=== PATIENT | female | born 1960 | race Caucasian/White ===

== ENCOUNTER 2016-07-24 02:40 | Inpatient (IN) | payer BC, MEDICARE ==
[~2016-07-24] VITALS: Ht 170.2 cm; Wt 116.4 kg
[2016-07-24] VITALS (39 sets, daily range): BP systolic 93–118; RESP 10–19; TEMP 96.6–98.4; Ht 170.2 cm; Wt 116.4 kg
[2016-07-24] MEDS ORDERED: MIDAZOLAM DRIP 100 ML IV ONE (03:47)
[2016-07-24] MEDS ORDERED: FENTANYL DRIP 50 ML IV ONE (03:48)
[2016-07-24] MEDS ORDERED: VANCOMYCIN 2,250 MG in SODIUM CHLORIDE 0.9% 500 ML IV ONE (04:25)
[2016-07-24] MEDS ORDERED: PIPERACIL/TAZO 4.5GM/100ML 100 ML IV ONE (04:25)
[2016-07-24] MEDS ORDERED: SALINE FLUSH 10 ML FLUSH PRN (04:35)
[2016-07-24] MEDS ORDERED: MIDAZOLAM IV SCH (04:40)
[2016-07-24] MEDS ORDERED: NEB-ALBUTEROL 2.5 MG/3 ML INH PRN (04:40)
[2016-07-24] MEDS ORDERED: SODIUM CHLORIDE 0.9% 1,000 ML ONE (04:43)
[2016-07-24] MEDS ORDERED: PHARMACY TO DOSE VANCOMYCIN IV SCH (04:45)
[2016-07-24] MEDS: SODIUM CHLORIDE 0.9% FLUSH BAG 500 ML IV SCH (05:44)
[2016-07-24] MEDS ORDERED: PIPERACIL/TAZO 4.5GM/100ML 100 ML IV SCH (06:00)
[2016-07-24] MEDS ORDERED: MAGNESIUM SULF 1 GM/100 ML 100 ML IV ONE (06:40)
[2016-07-24] MEDS: LEVOFLOXACIN 750 MG/150 ML 150 ML IV SCH (06:46)
[2016-07-24] MEDS: DUONEB INH SCH ×4 (06:59→22:41)
[2016-07-24] MEDS: LANSOPRAZOLE 30 MG SOLUTAB NG SCH (07:10)
[2016-07-24] MEDS: FENTANYL 500 MCG/50 ML BAG IV SCH ×2 (07:12→20:41)
[2016-07-24] MEDS: METHYLPRED SOD SUCC 40 MG VIAL IV SCH ×2 (07:54→16:36)
[2016-07-24] MEDS: ENOXAPARIN 40 MG/0.4 ML SYR SUBQ SCH (07:55)
[2016-07-24] MEDS: SALINE FLUSH 10 ML FLUSH SCH ×2 (07:55→20:00)
[2016-07-24] MEDS ORDERED: CHLORHEXIDINE 0.12% ORAL CARE FOR VENT PATIENTS 15 ML SWAB SCH (12:00)
[2016-07-24] MEDS: PIPERACIL/TAZO 4.5GM/100ML 100 ML IV SCH ×2 (12:09→16:37)
[2016-07-24] MEDS: CHLORHEXIDINE 0.12% ORAL CARE FOR VENT PATIENTS 15 ML SWAB SCH (12:10)
[2016-07-24] MEDS: VANCOMYCIN 2,000 MG in SODIUM CHLORIDE 0.9% 500 ML IV SCH (16:36)
[2016-07-25] VITALS (34 sets, daily range): BP systolic 96–132; RESP 8–16; TEMP 96.5–97.8
[2016-07-25] MEDS: PIPERACIL/TAZO 4.5GM/100ML 100 ML IV SCH ×4 (00:21→16:35)
[2016-07-25] MEDS: CHLORHEXIDINE 0.12% ORAL CARE FOR VENT PATIENTS 15 ML SWAB SCH ×2 (00:21→12:40)
[2016-07-25] MEDS: METHYLPRED SOD SUCC 40 MG VIAL IV SCH ×3 (00:21→16:34)
[2016-07-25] MEDS: DUONEB INH SCH ×6 (02:26→22:43)
[2016-07-25] MEDS: SODIUM CHLORIDE 0.9% FLUSH BAG 500 ML IV SCH (06:00)
[2016-07-25] MEDS: LANSOPRAZOLE 30 MG SOLUTAB NG SCH (06:25)
[2016-07-25] MEDS: VANCOMYCIN 2,000 MG in SODIUM CHLORIDE 0.9% 500 ML IV SCH (06:26)
[2016-07-25] MEDS: FENTANYL 500 MCG/50 ML BAG IV SCH ×2 (06:57→16:34)
[2016-07-25] MEDS: LEVOFLOXACIN 750 MG/150 ML 150 ML IV SCH (09:01)
[2016-07-25] MEDS: ENOXAPARIN 40 MG/0.4 ML SYR SUBQ SCH (09:02)
[2016-07-25] MEDS: SALINE FLUSH 10 ML FLUSH SCH ×2 (09:02→20:00)
[2016-07-26] VITALS (28 sets, daily range): BP systolic 100–156; RESP 9–22; TEMP 96.8–98.5
[2016-07-26] MEDS: PIPERACIL/TAZO 4.5GM/100ML 100 ML IV SCH ×4 (00:10→16:15)
[2016-07-26] MEDS: CHLORHEXIDINE 0.12% ORAL CARE FOR VENT PATIENTS 15 ML SWAB SCH ×2 (00:10→10:24)
[2016-07-26] MEDS: METHYLPRED SOD SUCC 40 MG VIAL IV SCH ×3 (00:10→16:15)
[2016-07-26] MEDS: SODIUM CHLORIDE 0.9% FLUSH BAG 500 ML IV SCH ×2 (05:08)
[2016-07-26] MEDS: LANSOPRAZOLE 30 MG SOLUTAB NG SCH (05:08)
[2016-07-26] MEDS: DUONEB INH SCH ×4 (07:49→23:38)
[2016-07-26] MEDS: ENOXAPARIN 40 MG/0.4 ML SYR SUBQ SCH (07:55)
[2016-07-26] MEDS: LEVOFLOXACIN 750 MG/150 ML 150 ML IV SCH (07:55)
[2016-07-26] MEDS: SALINE FLUSH 10 ML FLUSH SCH ×2 (08:00→20:00)
[2016-07-26] MEDS ORDERED: CORLANOR 7.5 MG PO SCH (09:00)
[2016-07-26] MEDS: MODAFINIL 100 MG TAB PO SCH (10:18)
[2016-07-26] MEDS: CORLANOR 7.5 MG PO SCH ×2 (10:19→21:00)
[2016-07-26] MEDS ORDERED: *PINK BRACELET XX ONE (10:20)
[2016-07-26] MEDS: GABAPENTIN 300 MG CAP PO SCH ×3 (10:20→21:00)
[2016-07-26] MEDS: PAROXETINE HCL 10 MG TAB PO SCH (10:20)
[2016-07-26] MEDS: Furosemide 40 MG/4 ML VIAL IV SCH (10:20)
[2016-07-26] MEDS ORDERED: NEB-ALBUTEROL 2.5 MG/3 ML INH PRN (10:40)
[2016-07-26] MEDS ORDERED: ONDANSETRON 4 MG VIAL IV PUSH PRN (10:55)
[2016-07-26] MEDS: *HOME MEDS IN MED CART XX SCH (20:00)
[2016-07-26] MEDS ORDERED: MISSING DOSE XX ONE (21:45)
[2016-07-27] VITALS (25 sets, daily range): BP systolic 102–143; RESP 11–22; TEMP 97.6–98.6
[2016-07-27] MEDS: PIPERACIL/TAZO 4.5GM/100ML 100 ML IV SCH ×2 (00:41→06:14)
[2016-07-27] MEDS: METHYLPRED SOD SUCC 40 MG VIAL IV SCH ×4 (00:41→23:35)
[2016-07-27] MEDS: SALINE FLUSH 10 ML FLUSH SCH ×2 (04:42→09:09)
[2016-07-27] MEDS: SODIUM CHLORIDE 0.9% FLUSH BAG 500 ML IV SCH ×2 (05:48→06:14)
[2016-07-27] MEDS: LANSOPRAZOLE 30 MG SOLUTAB NG SCH (06:14)
[2016-07-27] MEDS: DUONEB INH SCH ×4 (06:21→23:20)
[2016-07-27] MEDS: *HOME MEDS IN MED CART XX SCH ×2 (08:00→20:00)
[2016-07-27] MEDS: ENOXAPARIN 40 MG/0.4 ML SYR SUBQ SCH (09:09)
[2016-07-27] MEDS: CORLANOR 7.5 MG PO SCH ×2 (09:10→21:00)
[2016-07-27] MEDS: GABAPENTIN 300 MG CAP PO SCH ×3 (09:10→22:13)
[2016-07-27] MEDS: PAROXETINE HCL 10 MG TAB PO SCH (09:10)
[2016-07-27] MEDS: MODAFINIL 100 MG TAB PO SCH (09:10)
[2016-07-27] MEDS: CEFTRIAXONE 1 GM in SODIUM CHLORIDE 0.9% 50 ML IV SCH (09:10)
[2016-07-27] MEDS: Furosemide 40 MG/4 ML VIAL IV SCH (09:11)
[2016-07-27] MEDS ORDERED: MISSING DOSE XX ONE (09:50)
[2016-07-27] MEDS: LEVOFLOXACIN 750 MG/150 ML 150 ML IV SCH (10:27)
[2016-07-27] MEDS: CHLORHEXIDINE 0.12% ORAL CARE FOR VENT PATIENTS 15 ML SWAB SCH ×2 (12:00)
[2016-07-28] VITALS (12 sets, daily range): BP systolic 119–175; RESP 12–25; TEMP 96.5–98
[2016-07-28] MEDS: SODIUM CHLORIDE 0.9% FLUSH BAG 500 ML IV SCH ×2 (04:43)
[2016-07-28] MEDS: LANSOPRAZOLE 30 MG SOLUTAB NG SCH (07:00)
[2016-07-28] MEDS: DUONEB INH SCH ×4 (07:22→22:49)
[2016-07-28] MEDS: *HOME MEDS IN MED CART XX SCH ×2 (08:00→22:14)
[2016-07-28] MEDS: GABAPENTIN 300 MG CAP PO SCH ×3 (09:22→21:08)
[2016-07-28] MEDS: CORLANOR 7.5 MG PO SCH ×2 (09:23→21:08)
[2016-07-28] MEDS: MODAFINIL 100 MG TAB PO SCH (09:23)
[2016-07-28] MEDS: PAROXETINE HCL 10 MG TAB PO SCH (09:23)
[2016-07-28] MEDS: ENOXAPARIN 40 MG/0.4 ML SYR SUBQ SCH (09:24)
[2016-07-28] MEDS: METHYLPRED SOD SUCC 40 MG VIAL IV SCH ×2 (09:24→17:09)
[2016-07-28] MEDS: Furosemide 40 MG/4 ML VIAL IV SCH (09:24)
[2016-07-28] MEDS: SALINE FLUSH 10 ML FLUSH SCH (09:25)
[2016-07-28] MEDS: LEVOFLOXACIN 750 MG/150 ML 150 ML IV SCH (09:26)
[2016-07-28] MEDS: CEFTRIAXONE 1 GM in SODIUM CHLORIDE 0.9% 50 ML IV SCH (09:26)
[2016-07-28] MEDS ORDERED: ACETAMINOPHEN 325 MG TAB PO PRN (10:40)
[2016-07-29] VITALS (8 sets, daily range): BP systolic 124–136; RESP 18–25; TEMP 97.1–97.6
[2016-07-29] MEDS: SALINE FLUSH 10 ML FLUSH SCH ×3 (00:24→20:29)
[2016-07-29] MEDS: METHYLPRED SOD SUCC 40 MG VIAL IV SCH ×4 (01:19→23:30)
[2016-07-29] MEDS: SODIUM CHLORIDE 0.9% FLUSH BAG 500 ML IV SCH ×2 (04:54→05:03)
[2016-07-29] MEDS: DUONEB INH SCH ×4 (05:19→22:58)
[2016-07-29] MEDS: LANSOPRAZOLE 30 MG SOLUTAB NG SCH (06:16)
[2016-07-29] MEDS: *HOME MEDS IN MED CART XX SCH ×2 (08:00→20:00)
[2016-07-29] MEDS: CEFTRIAXONE 1 GM in SODIUM CHLORIDE 0.9% 50 ML IV SCH (08:59)
[2016-07-29] MEDS: LEVOFLOXACIN 750 MG/150 ML 150 ML IV SCH (08:59)
[2016-07-29] MEDS: CORLANOR 7.5 MG PO SCH ×2 (09:00→20:29)
[2016-07-29] MEDS: Furosemide 40 MG TAB PO SCH (09:00)
[2016-07-29] MEDS: ENOXAPARIN 40 MG/0.4 ML SYR SUBQ SCH (09:01)
[2016-07-29] MEDS: PAROXETINE HCL 10 MG TAB PO SCH (09:01)
[2016-07-29] MEDS: GABAPENTIN 300 MG CAP PO SCH ×3 (09:30→20:30)
[2016-07-29] MEDS: MODAFINIL 100 MG TAB PO SCH (09:30)
[2016-07-29] MEDS: NEB-BUDESONIDE 0.25 MG INH SCH ×2 (10:17→20:10)
[2016-07-30] VITALS (10 sets, daily range): BP systolic 123–170; RESP 18–24; TEMP 96.6–98.6
[2016-07-30] MEDS: SODIUM CHLORIDE 0.9% FLUSH BAG 500 ML IV SCH ×2 (05:27→05:47)
[2016-07-30] MEDS: LANSOPRAZOLE 30 MG SOLUTAB NG SCH (05:30)
[2016-07-30] MEDS: DUONEB INH SCH ×4 (07:11→23:03)
[2016-07-30] MEDS: NEB-BUDESONIDE 0.25 MG INH SCH ×2 (07:11→19:29)
[2016-07-30] MEDS: SALINE FLUSH 10 ML FLUSH SCH ×2 (07:37→20:31)
[2016-07-30] MEDS: *HOME MEDS IN MED CART XX SCH ×2 (08:00→20:00)
[2016-07-30] MEDS: MODAFINIL 100 MG TAB PO SCH (08:14)
[2016-07-30] MEDS: CORLANOR 7.5 MG PO SCH ×2 (08:14→20:31)
[2016-07-30] MEDS: PAROXETINE HCL 10 MG TAB PO SCH (08:14)
[2016-07-30] MEDS: Furosemide 40 MG TAB PO SCH (08:14)
[2016-07-30] MEDS: GABAPENTIN 300 MG CAP PO SCH ×3 (08:14→20:31)
[2016-07-30] MEDS: LEVOFLOXACIN 750 MG/150 ML 150 ML IV SCH (08:15)
[2016-07-30] MEDS: METHYLPRED SOD SUCC 40 MG VIAL IV SCH ×2 (08:15→16:20)
[2016-07-30] MEDS: ENOXAPARIN 40 MG/0.4 ML SYR SUBQ SCH (08:16)
[2016-07-30] MEDS: CEFTRIAXONE 1 GM in SODIUM CHLORIDE 0.9% 50 ML IV SCH (09:52)
[2016-07-31] VITALS (8 sets, daily range): BP systolic 118–156; RESP 16–24; TEMP 97.6–98.4
[2016-07-31] MEDS: METHYLPRED SOD SUCC 40 MG VIAL IV SCH ×4 (00:24→23:00)
[2016-07-31] MEDS: SODIUM CHLORIDE 0.9% FLUSH BAG 500 ML IV SCH ×2 (05:15)
[2016-07-31] MEDS: DUONEB INH SCH ×4 (05:26→22:57)
[2016-07-31] MEDS: NEB-BUDESONIDE 0.25 MG INH SCH ×2 (05:26→17:41)
[2016-07-31] MEDS: LANSOPRAZOLE 30 MG SOLUTAB NG SCH (06:14)
[2016-07-31] MEDS: *HOME MEDS IN MED CART XX SCH ×2 (07:29→20:00)
[2016-07-31] MEDS: SALINE FLUSH 10 ML FLUSH SCH ×2 (08:50→20:12)
[2016-07-31] MEDS: PAROXETINE HCL 10 MG TAB PO SCH (08:50)
[2016-07-31] MEDS: LEVOFLOXACIN 750 MG/150 ML 150 ML IV SCH (08:50)
[2016-07-31] MEDS: GABAPENTIN 300 MG CAP PO SCH ×3 (08:51→20:13)
[2016-07-31] MEDS: MODAFINIL 100 MG TAB PO SCH (08:51)
[2016-07-31] MEDS: Furosemide 40 MG TAB PO SCH (08:51)
[2016-07-31] MEDS: CORLANOR 7.5 MG PO SCH ×2 (08:51→20:13)
[2016-07-31] MEDS: ENOXAPARIN 40 MG/0.4 ML SYR SUBQ SCH (08:52)
[2016-07-31] MEDS: CEFTRIAXONE 1 GM in SODIUM CHLORIDE 0.9% 50 ML IV SCH (10:00)
[2016-08-01] VITALS (7 sets, daily range): BP systolic 120–152; RESP 18–20; TEMP 96.5–98
[2016-08-01] MEDS: LANSOPRAZOLE 30 MG SOLUTAB NG SCH (05:47)
[2016-08-01] MEDS: SODIUM CHLORIDE 0.9% FLUSH BAG 500 ML IV SCH ×2 (05:48)
[2016-08-01] MEDS: DUONEB INH SCH ×2 (06:36→14:25)
[2016-08-01] MEDS: NEB-BUDESONIDE 0.25 MG INH SCH (06:36)
[2016-08-01] MEDS: *HOME MEDS IN MED CART XX SCH ×2 (08:00→15:14)
[2016-08-01] MEDS: CEFTRIAXONE 1 GM in SODIUM CHLORIDE 0.9% 50 ML IV SCH (08:40)
[2016-08-01] MEDS: SALINE FLUSH 10 ML FLUSH SCH (08:41)
[2016-08-01] MEDS: GABAPENTIN 300 MG CAP PO SCH (08:41)
[2016-08-01] MEDS: MODAFINIL 100 MG TAB PO SCH (08:41)
[2016-08-01] MEDS: PAROXETINE HCL 10 MG TAB PO SCH (08:41)
[2016-08-01] MEDS: ENOXAPARIN 40 MG/0.4 ML SYR SUBQ SCH (08:43)
[2016-08-01] MEDS: Furosemide 40 MG TAB PO SCH (08:43)
[2016-08-01] MEDS: CORLANOR 7.5 MG PO SCH (08:43)
[2016-08-01] MEDS: LEVOFLOXACIN 750 MG/150 ML 150 ML IV SCH (08:49)
[2016-08-01] MEDS ORDERED: NICOTINE 14 MG/24 HR TDSY TRANSDERM SCH (15:25)
== END 2016-08-01 16:24 | disposition home health service (06) | DRG 871 ==
LOC: ENRESERVDT → ENRESERVTM → ER 02:40 → ENPENDDIS 04:00 → EMR 04:00 → ICU 04:50 → 4THE 07-28 06:31
PROVIDERS: ADMIT Hospitalist; ATTEND Hospitalist
PROC: 5A1945Z Respiratory Ventilation, 24-96 Consecutive Hours (ICD-10-PCS; principal; 2016-07-24)
CPT/HCPCS: 36600; 71010; 80048; 80053; 82803; 85025; 87077; 87186; 93005; 94002; 94003; 94640; 94660; 94762; 94799; 99233; 99238; 99291